=== PATIENT | male | born 1955 | race Caucasian/White ===

== ENCOUNTER 2020-06-16 17:54 | Emergency (ER) | payer BC ==
[~2020-06-16] VITALS: Ht 170.2 cm; Wt 72.6 kg
[2020-06-16 17:55] VITALS: BP 128/96
--- NOTE | 2020-06-16 18:00 | NUR ---
c/o LLQ pain since sunday 11/12 pain scale, -N/V,-diarrhea "it hurts when i press" Patient a/ox4, breathing even and unlabored, no sob noted, needs attended, kept comfortable.
--- NOTE | 2020-06-16 18:28 | NUR ---
Patient discharged to home in stable condition. Written and verbal after care instructions given. Patient verbalizes understanding of instruction.
== END 2020-06-16 18:29 | disposition home or self-care (01) ==
LOC: ER 18:01
DX: R10.32 Left lower quadrant pain (principal)